=== PATIENT | male | born 1990 ===

== ENCOUNTER 2018-03-13 10:52 | Day surgery (SDC) | payer OTHER ==
[~2018-03-13] VITALS: Ht 182.9 cm; Wt 93.0 kg
[2018-03-13] VITALS (9 sets, daily range): BP systolic 124–149; BP diastolic 63–88
[~2018-03-13 10:52] MED LIST: Lidocaine 1% MPF 10mg/ml 5ml ONE; Midazolam 2mg/2ml Inj ONE; Propofol 200mg/20ml IV ONE; ceFAZolin sod 1 GM in NS 55 ML IVPB SCH; fentaNYL 100 mcg/2 mL IV ONE
[2018-03-13] MEDS ORDERED: EPINEPHrine 1mg/1ml Amp ONE (11:20)
[2018-03-13] MEDS ORDERED: NeoSporin Gu Irrig 1ml Amp IRRIG ONE (11:21)
[2018-03-13] MEDS ORDERED: Bacitracin 50000 Units Vial ONE (11:21)
[2018-03-13] MEDS ORDERED: Bupivacaine 0.5% Inj 30 ml vial INJ ONE (11:21)
[2018-03-13] MEDS ORDERED: NKM (11:32)
--- NOTE | 2018-03-13 12:09 | Anethesia Preoperative Eval ---
Anesthesia Pre-op PMH/ROS General Date of Evaluation: March 13, 2018 Time of Evaluation: 11:59 Anesthesiologist: ASA Score: ASA 1 Mallampati Score Class I : Soft palate, uvula, fauces, pillars visible Class II: Soft palate, uvula, fauces visible Class III: Soft palate, base of uvula visible Class IV: Only hard plate visible Mallampati Classification: Class I Surgeon: veto Diagnosis: hardware left femur Surgical Procedure: removal hardware left femur Anesthesia History: none Family History: no anesthesia problems Allergies: Coded Allergies: Crab (Verified Allergy, Severe, swelling, 03/13/18) Medications: see eMAR Past Medical History Cardiovascular: Denies: HTN, CAD, [place], valve dz, arrhythmia, other Pulmonary: Denies: asthma, COPD, [place], other Gastrointestinal/Genitourinary: Denies: GERD, CRI, ESRD, other Neurologic/Psychiatric: Denies: dementia, CVA, depression/anxiety, TIA, other Endocrine: Denies: DM, hypothyroidism, steroids, other HEENT: Denies: cataract (L), cataract (R), glaucoma, [place] (L), [place] (R), other Hematology/Immune: Denies: anemia, DVT, bleeding disorder, other Musculoskeletal/Integumentary: Denies: OA, RA, DJD, DDD, edema, other PSxH Narrative: left femur Anesthesia Pre-op Phys. Exam Physician Exam Last Vital Signs Date Time Temp Pulse Resp B/P (MAP) Pulse Ox O2 Delivery O2 Flow Rate FiO2 03/13/18 11:37 97.0 65 18 124/88 99 Room Air 97.0 Constitutional: NAD Cardiovascular: RRR Respiratory: CTA Gastrointestinal: S/NT/ND Airway Exam Mallampati Score: Class II MO: full ROM: full Teeth: intact Dentures: no upper, no lower Anesthesia Pre-op A/P Risk Assessment & Plan Assessment: ASA 1, okay to proceed Plan: ETGA Status Change Before Surgery: Lorri Berrios M.D. March 13, 2018 12:09
[2018-03-13] MEDS ORDERED: LR 1000ml ONE (12:30)
[2018-03-13] MEDS ORDERED: Sterile Water Irrig 1000ml IRRIG ONE (12:30)
[2018-03-13] MEDS ORDERED: NS Irrig 1000ml ONE (12:30)
--- NOTE | 2018-03-13 12:36 | Pre-Procedure Note/Attestation ---
Pre-Procedure Note/Attestation Complete Prior to Procedure Procedure Narrative: Left femur Removal of Hardware Indications for Procedure Pre-Operative Diagnosis: Symptomatic Left Femur hardware Attestation I attest that I discussed the nature of the procedure; its benefits; risks and complications; and alternatives (and the risks and benefits of such alternatives ), prior to the procedure, with the patient (or the patient's legal data entry representative). I attest that, if there was a reasonable possibility of needing a blood transfusion, the patient (or the patient's legal data entry representative) was given the [facility] standardized written summary, pursuant to the [place] Blood Safety Act ([place] Health and Safety Code # 1645, as amended). I attest that I re-evaluated the patient just prior to the surgery and that there has been no change in the patient's H&P, except as documented below: Angel Pepe MD March 13, 2018 12:36
[2018-03-13] MEDS ORDERED: Dexamethasone 4mg/ml vial ONE (12:46)
[2018-03-13] MEDS ORDERED: Ketorolac 30mg Inj ONE (12:46)
[2018-03-13] MEDS ORDERED: Propofol 200mg/20ml IV ONE (12:49)
[2018-03-13] MEDS ORDERED: LR 1000ml 1,000 ML IVLG SCH (13:52)
[2018-03-13] MEDS ORDERED: Metoclopramide 10mg/2ml Inj IVP PRN (14:00)
[2018-03-13] MEDS ORDERED: Labetalol 5mg/ml 20ml vial IV PRN (14:00)
[2018-03-13] MEDS ORDERED: fentaNYL 100 mcg/2 mL IV PRN (14:00)
[2018-03-13] MEDS ORDERED: Midazolam 2mg/2ml Inj IVP PRN (14:00)
[2018-03-13] MEDS ORDERED: DiphenhydrAMINE 50mg/ml Inj IVP PRN (14:00)
--- NOTE | 2018-03-13 14:22 | Immediate Post-Op Evaluation ---
Immediate Post-Op Evalulation Immediate Post-Op Evalulation Procedure: hardware removal left femur Date of Evaluation: March 13, 2018 Time of Evaluation: 14:08 IV Fluids: LR 500ml Blood Products: 0 Estimated Blood Loss: 0 Urinary Output: 0 Blood Pressure Systolic: 124 Blood Pressure Diastolic: 63 Pulse Rate: 86 Respiratory Rate: 20 O2 Sat by Pulse Oximetry: 100 Temperature (Fahrenheit): 97.8 Pain Score (1-10): 3 Nausea: No Vomiting: No Complications none Patient Status: awake, patent, none Hydration Status: adequate Drug: ancef 1 gram Given Within 1 Hr of Incision: No Time Given: 12:50 Lorri Palomo M.D. March 13, 2018 14:22
--- NOTE | 2018-03-13 14:33 | Brief Operative Note ---
Immediate Post Operative Note Operative Note Pre-op Diagnosis: Symptomatic Left Femur hardware Procedure: Removal of hardware Left Knee Post-op Diagnosis: same as pre-op Findings: consistent w/pre-op dx studies Surgeon: Afshin Anesthesiologist: Anesthesia: general Specimen: none Complications: none Condition: stable Fluids: 500cc Estimated Blood Loss: none Drains: none Implant(s) used?: No Angel Pepe MD March 13, 2018 14:33
--- NOTE | 2018-03-13 14:52 | Diagnostic Imaging Report ---
Indication: Pain /Fluoroscopic views of the left knee were obtained. Findings: Intramedullary rods noted in the distal part of the right femur. The distal locking screws were removed. IMPRESSION: Intraoperative imaging
[2018-03-13] MEDS ORDERED: HYDROcodone/Acetamin 10/325 tab ONE (15:30)
--- NOTE | 2018-03-13 15:39 | 48 Hour Post Anesthesia Eval ---
Post Anesthesia Evaluation Procedure: hardware removal left femur Date of Evaluation: March 13, 2018 Time of Evaluation: 14:30 Blood Pressure Systolic: 146 0: 83 Pulse Rate: 73 Respiratory Rate: 16 Temperature (Fahrenheit): 97.8 O2 Sat by Pulse Oximetry: 100 Airway: patent Nausea: No Vomiting: No Hydration Status: adequate Mental Status/LOC: patient returned to baseline Post-Anesthesia Complications: none Follow-up care needed: ready to discharge Lorri Palomo M.D. March 13, 2018 15:39
[2018-03-13] MEDS ORDERED: HYDROcodone/Acetamin 10/325 tab ORAL SCH (15:45)
--- NOTE | 2018-03-13 18:45 | Operative Note - Dictated ---
DATE OF OPERATION: 03/13/2018 PREOPERATIVE DIAGNOSIS: Status post left femur intramedullary praveena fixation with symptomatic hardware distal femur. POSTOPERATIVE DIAGNOSIS: Status post left femur intramedullary praveena fixation with symptomatic hardware distal femur. PROCEDURE PERFORMED: 1. Removal of deep hardware, left femur. 2. Intraoperative use of fluoroscopy. SURGEON: Angel Pepe M.D. ANESTHESIA: General endotracheal anesthesia. ANESTHESIOLOGIST: Lorri Palomo M.D. COMPLICATIONS: None. IV ANTIBIOTICS: 1 gram of Ancef. BACKGROUND AND INDICATIONS: This is a pleasant gentleman, who failed nonoperative treatments. He had symptomatic hardware around the left knee and left femur. Option for above treatment was given. Risks, alternatives, and benefits were discussed with the patient at length. Risks include, but are not limited to, anesthesia complications including , medical complications including liver, kidney, cardiopulmonary deficits, infection, bleeding, and neurovascular injury. OPERATIVE FINDINGS: Deep hardware left femur protruding on the medial side of the knee. OPERATIVE PROCEDURE: The patient was brought to the operating room supine on a stretcher. Appropriate IV lines were placed. A surgical time-out was called. The patient was induced and general anesthesia was given. A 1 gram of Ancef was administered. A surgical time-out was called. The left lower extremity was prepped and draped in the usual sterile fashion. At this point with the use of biplanar fluoroscopy, two incisions were made laterally over the left distal femur where the previous incisions were. The distal locking screws were found. Careful dissection was made with a blunt tipped clamp. This was taken to the level of the [place] of the screw and at this point, with the appropriate screw parts delivery driver from the [employer] set, the two distal locking screws from the distal femur were carefully removed under biplanar fluoroscopy. Final AP and lateral fluoro images revealed that the screws were removed in their entirety and that the femoral praveena was intact and in place. At this point, the subdermal and subcuticular layers were closed with 2-0 Vicryl suture. Skin was closed with Dermabond. Sterile dressing tape was placed. The patient was extubated and taken to the recovery room in stable condition and found to be neurovascularly intact. Angel Pepe M.D. DR: JIGAR JOB#: [id number] CC: HARISH
== END 2018-03-13 16:20 | disposition home or self-care (01) ==
LOC: SUR 10:52
DX: T85.848A Pain due to other internal prosthetic devices, implants and grafts, initial encounter (principal); Y83.9 Surgical procedure, unspecified as the cause of abnormal reaction of the patient, or of later complication, without mention of misadventure at the time of the procedure; Z83.3 Family history of diabetes mellitus; Z80.9 Family history of malignant neoplasm, unspecified
CPT/HCPCS: 20680; 73560; 76001; J0171; J0690; J1100; J1885; J2250; J2405; J2704; J3010; J3490; J7120; 94003; 94150